=== PATIENT | female | born 2000 | race African-American/Black ===

== ENCOUNTER 2018-04-25 09:44 | Day surgery (SDC) | payer BC, OTHER ==
[2018-04-24 15:59] VITALS: BMI 34.2
[2018-04-25 10:45] LABS: BASO % 0.5 % (0-2.0); EOS % 1.8 % (0-4.5); HEMATOCRIT 38.2 % (32.4-45.2); HEMOGLOBIN 12.9 GM/dL (10.7-15.3); LYMPH % 27.3 % (8-40); MCH 27.8 pg (25.7-33.7); MCHC 33.9 g/dl (32.0-36.0); MEAN PLT VOLUME 11.2 fl (7.5-11.1); MONO % 9.1 % (3.8-10.2); NEUT % 61.3 % (42.8-82.8); PLATELET COUNT 196 K/MM3 (134-434); RBC 4.66 M/mm3 (3.60-5.2); RDW 14.1 % (11.6-15.6); WHITE BLOOD COUNT 6.4 K/mm3 (4.0-10.0)
[2018-04-25] MEDS ORDERED: LIDOCAINE 1%/EPI 1:100000 (20 ML MULTI DOSE VIAL) ONE (12:10)
[2018-04-25] MEDS ORDERED: BUPIVACAINE HCL/PF 0.25% (2.5MG/ML) 10 ML VIAL ONE (12:10)
[2018-04-25] MEDS ORDERED: ceFAZolin SODIUM 1 GM VIAL IVPB ONE (12:10)
[2018-04-25] MEDS ORDERED: fentaNYL CITRATE 250 MCG/5 ML VIAL ONE ×2 (12:16)
[2018-04-25] MEDS ORDERED: MIDAZOLAM HCL 2 MG/2 ML SINGLE DOSE VIAL ONE (12:27)
[2018-04-25] MEDS ORDERED: LIDOCAINE 1%/EPI 1:100000 (20 ML MULTI DOSE VIAL) IJ ONE (12:45)
[2018-04-25] MEDS ORDERED: BUPIVACAINE HCL/PF 0.25% (2.5MG/ML) 10 ML VIAL IJ ONE (12:45)
[2018-04-25] MEDS ORDERED: ROCURONIUM BROMIDE 50 MG/5 ML VIAL ONE (12:53)
[2018-04-25] MEDS ORDERED: NEOSTIGMINE METHYLSULFATE 0.5 MG/ML - 10 ML MDV ONE (14:14)
[2018-04-25] MEDS ORDERED: GLYCOPYRROLATE 0.2 MG/1 ML VIAL ONE (14:14)
[2018-04-25] MEDS ORDERED: oxyCODONE HCL 5 MG TABLET PO PRN (14:45)
[2018-04-25] MEDS ORDERED: ONDANSETRON 4 MG/2 ML VIAL IVPUSH PRN (14:45)
[2018-04-25] MEDS ORDERED: LACTATED RINGERS SOLUTION 1,000 ML IV SCH (14:45)
[2018-04-25] MEDS ORDERED: PROMETHAZINE HCL 25 MG/1 ML VIAL IVPUSH PRN (14:45)
--- NOTE | 2018-04-25 14:49 | OP ---
Operative Note - Note: Operative Date: 04/25/18 Pre-Operative Diagnosis: Syptomatic Macromastia Operation: Bilateral breast reduction Post-Operative Diagnosis: Same as Pre-op Surgeon: Sandeep Gallagher Clinical Support Manager: Grabiel Juarez Anesthesiologist/AREA MANAGER: Rubens Huynh Anesthesia: General Specimens Removed: Bilateral breast tissue Estimated Blood Loss (mls): 100 Fluid Volume Replaced (mls): 1,000 Operative Report Dictated: Yes
--- NOTE | 2018-04-25 14:52 | SURG ---
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 For further detail, please refer to operative report. Visit type - Case Type Case Type: Scheduled - New patient This patient is new to me today: Yes Date on this admission: 04/25/18
[2018-04-25] MEDS ORDERED: ACETAMINOPHEN 1000 MG/100 ML VIAL (NON FORMULARY) IVPB ONE (14:58)
[2018-04-25] MEDS ORDERED: ONDANSETRON 4 MG/2 ML VIAL ONE ×2 (15:21→18:13)
[2018-04-25] MEDS ORDERED: ACETAMINOPHEN INJECTION 100 ML IVPB ONE (15:22)
[2018-04-25] MEDS ORDERED: ONDANSETRON 4 MG/2 ML VIAL IVPUSH ONE (18:20)
[2018-04-25 21:32] VITALS: BP 105/66; PULSE 76; TEMP 98
--- NOTE | 2018-04-28 18:25 | OP ---
DATE OF OPERATION: 04/25/2018 PREOPERATIVE DIAGNOSIS: Symptomatic bilateral macromastia. POSTOPERATIVE DIAGNOSIS: Symptomatic bilateral macromastia. PROCEDURE: Bilateral reduction mammoplasty (superomedial pedicle, Gabriel pattern). ATTENDING SURGEON: Sandeep Gallagher MD ANESTHESIA: General endotracheal. ESTIMATED BLOOD LOSS: 30 mL. SPECIMEN: 1. Right breast skin and tissue to Pathology (878 g). 2. Left breast skin and tissue to Pathology (795 g). DRAINS: None. COMPLICATIONS: None. CONDITION: Stable to recovery room, extubated. INDICATIONS: The patient is a 18-year-old girl who presents with several-year history of bilateral symptomatic macromastia. Conservative therapy has failed and the patient is therefore indicated for a bilateral reduction mammoplasty in order to alleviate her back and neck symptoms. The risks, benefits and alternatives were discussed with the patient and her mother in detail and all questions were answered. The risks include but are not limited to bleeding, infection, pain, need for revision or further surgery, partial or complete skin flap loss, partial or complete nipple loss, decreased or absent nipple sensation, damage to neighboring structures including nerves, arteries, veins, and tendons. The patient and her mother understand these risks and have elected to proceed with surgery. PROCEDURE: After proper identification and marking the patient in the preoperative holding area, the patient was transported to the operating room and placed supine on the table, where noninvasive anesthesia monitors were applied. Intravenous access was established. General anesthesia was administered and the patient was intubated without difficulty. SCD boots were applied to bilateral lower extremities. Intravenous antibiotics were then given. The patient's bilateral breasts were then prepped and draped in the usual sterile fashion. At this point, local anesthesia consisting of 1% lidocaine with 1:100,000 units of epinephrine and 0.25% Marcaine mixed in a 1:1 fashion was infiltrated along the preoperative markings on bilateral breasts. A total of 20 mL were used between the 2 breasts, and care was taken to avoid injection of the pedicle and its base. At this point, attention was turned towards the right breast, where a 42-mm cookie cutter was centered around the nipple-areolar complex. This incision was made with a number 15 blade. The remainder of the Gabriel skin reduction pattern incisions were then incised. At this point, a superomedial pedicle was designed. This was incised as well and then de-epithelialized. At this point, electrocautery was used to deepen all incisions except for the base of the pedicle. A resection of the inferior breast tissue then commenced, proceeding from a medial to lateral direction just above the level of the pectoralis major and serratus anterior fascia. Care was taken to avoid undermining of the pedicle as the resection proceeded. The resected breast tissue was passed off the field to Pathology. At this point, a superior breast tissue resection was performed at the position of the nipple transposition. This was passed off the field as well. At this point, the breast pocket was irrigated and hemostasis was ensured. The barrios point along the inframammary fold was then reapproximated using a 2-0 nylon suture in a half-buried horizontal mattress fashion. The vertical and horizontal limbs were then temporarily stapled closed. The nipple-areolar pedicle was then transposed and it was inset using a 3-0 Monocryl in a buried deep dermal fashion followed by a 4-0 nylon in simple running fashion. The vertical and horizontal limbs were then reapproximated using a 2-0 Vicryl in an interrupted buried deep dermal fashion, followed by a 3-0 V-Loc suture in a running subcuticular fashion. There was noted to be excellent size and shape and therefore attention was turned towards the left breast, where the exact same procedure was performed, and therefore only one side will be dictated. Once bilateral breast incisions were completely closed, Mastisol and Steri-Strips were placed around the nipple-areolar closure line bilaterally as well as along bilateral vertical limbs. The horizontal limb was dressed with Prineo tape. At this point, the patient was placed into soft surgical bra with care taken to ensure adequate padding with fluffs and ABD pads. The patient next was slowly awakened and was extubated without incident and then was transported to recovery room in stable condition. SANDEEP GALLAGHER M.D. [id number]
--- NOTE | 2018-05-01 18:26 | PATH ---
Surgical Pathology Report Patient Name: CARI LAMAS [facility]. Rec. #: [id number] /Age/Gender: 2000 (Age: 18) / F Account: [id number] Location: [facility] SURGICAL Taken: 04/25/2018 Received: 04/28/2018 Reported: 05/01/2018 Physicians: Sandeep Gallagher MD Specimen(s) Received A: RIGHT BREAST TISSUE B: LEFT BREAST TISSUE Clinical History Bilateral breast macromastia Final Diagnosis A. BREAST TISSUE, RIGHT, REDUCTION: BENIGN BREAST TISSUE WITH FIBROCYSTIC CHANGES INCLUDING STROMAL FIBROSIS AND MICROCYSTS. SKIN WITHOUT SIGNIFICANT PATHOLOGIC FINDINGS. B. BREAST TISSUE, LEFT, REDUCTION: BENIGN BREAST TISSUE. SKIN WITHOUT SIGNIFICANT PATHOLOGIC FINDINGS. Electronically Signed Bia Christensen M.D. Gross Description A. Received in formalin labeled "right breast tissue" are 2 fragments of fibroadipose tissue and overlying skin weighing 898 g and measuring 18 x 14 x 4 and 9 x 7 x 1 cm. Cut section shows fibrofatty tissue with focal areas of fibrosis. No masses are grossly identified. [employer] sections are submitted in one cassette B. Received in formalin labeled "left breast tissue" are multiple fragments of fibroadipose tissue and overlying skin weighing 756 g and measuring 19 x 19 x 4 cm in aggregate. Cut section shows fibrofatty tissue with focal areas of fibrosis. No masses are grossly identified. [employer] sections are submitted in one cassette MLSZ/04/28/2018 san/04/28/2018
== END 2018-04-25 20:15 | disposition home or self-care (01) ==
LOC: JASU-SURG 09:44
PROVIDERS: ATTEND Plastic Surgery
PROC: 0HBV0ZZ Excision of Bilateral Breast, Open Approach (ICD-10-PCS; principal; 2018-04-25 11:00)
DX: N62 Hypertrophy of breast (principal)
CPT/HCPCS: 36415; 85025; 86850; 86900; 86901; 88305-TC; 94760; J0131